=== PATIENT | male | born 1935 | race Caucasian/White ===

== ENCOUNTER 2024-02-03 15:11 | Inpatient (IN) | payer BC ==
[2024-02-03 15:41] LABS: #Basophils Less than 0.03 10x3/uL (0.0-0.2); %Basophils 0.3 % (0.0-1.0); %Eosinophils 0.4 % (0.0-10.0); %Lymphocytes 23.7 % (21.0-51.0); %Monocytes 17.6 % (0.0-10.0); %Neutrophils 57.6 % (42.0-75.0); Hematocrit 39.1 % (42.0-52.0); Hemoglobin 13.1 g/dL (14.0-18.0); Mean Corpuscular HGB CONC 33.5 g/dL (32.0-36.0); Mean Corpuscular Hemoglobin 30.6 pg (27.0-31.0); Mean Corpuscular Volume 91.4 fL (78.0-98.0); Mean Platelet Volume 9.7 fL (7.4-10.4); Platelet Count 190 10x3/uL (130-400); RBC Distribution Width 14.6 % (11.5-14.5); Red Blood Cell (RBC) Count 4.28 mill/uL (4.70-6.10)
[2024-02-03 15:54] LABS: ALT (SGPT) 31 U/L (8-55); AST (SGOT) 108 U/L (5-34); Albumin 3.7 g/dL (3.4-4.8); Alkaline Phosphatase 80 U/L (40-110); Anion Gap 15 mmol/L (10-20); BUN (Urea Nitrogen) 32 mg/dL (8.4-25.7); Bilirubin, Total 0.4 mg/dL (0.2-1.2); Calc. Creatinine Clearance 0 mL/min (70-130); Calcium 9.6 mg/dL (7.8-10.44); Carbon Dioxide 23 mmol/L (23-31); Chloride 106 mmol/L (98-107); Estimated GFR 30; Globulin 4.1 g/dL (2.4-3.5); Glucose 110 mg/dL (83-110); Lipase 24 U/L (8-78); Magnesium 2.2 mg/dL (1.6-2.6); Potassium 4.3 mmol/L (3.5-5.1); Protein, Total 7.8 g/dL (5.8-8.1); Sodium 140 mmol/L (136-145)
[2024-02-03 16:14] LABS: Troponin I 18.032 ng/mL (< 0.028)
[2024-02-03] MEDS ORDERED: Heparin 5,000 UNITS/ML VIAL ONE (17:56)
[2024-02-03] MEDS ORDERED: Nitroglycerin 2% Ointment 1 INCH/1 GM Packet ONE (17:56)
[2024-02-03] MEDS ORDERED: Heparin 25,000 units/D5W 500 ML ONE (17:57)
[2024-02-03] MEDS ORDERED: Aspirin Chewable 81 MG TAB ONE (17:57)
[2024-02-03] MEDS ORDERED: Ondansetron PF 4 MG/2 ML Vial IVP PRN (18:00)
[2024-02-03] MEDS ORDERED: traMADol HCl 50 MG TAB PO PRN (18:00)
[2024-02-03] MEDS ORDERED: Acetaminophen 325 MG TAB PO PRN (18:00)
[2024-02-03] MEDS ORDERED: Nitroglycerin 0.4 MG TAB (25 Tab Bottle) SL PRN (18:08)
[2024-02-03 18:29] LABS: Hematocrit 36.4 % (42.0-52.0); Hemoglobin 12.1 g/dL (14.0-18.0); Platelet Count 178 10x3/uL (130-400)
[2024-02-03] MEDS ORDERED: Morphine 2 MG/ML VIAL SLOW IVP PRN (18:40)
[2024-02-03 18:54] LABS: Troponin I 19.631 ng/mL (< 0.028)
[2024-02-03 19:04] LABS: PTT 158.1 sec (22.9-36.1)
[2024-02-03 20:28] VITALS: BMI 23.5
[2024-02-03] MEDS: Lactated Ringer's 1,000 ML IV SCH (20:55)
[2024-02-03 22:21] LABS: Troponin I 20.188 ng/mL (< 0.028)
[2024-02-04 04:48] LABS: #Basophils 0.03 10x3/uL (0.0-0.2); %Basophils 0.6 % (0.0-1.0); %Eosinophils 2.1 % (0.0-10.0); %Lymphocytes 29.1 % (21.0-51.0); Hematocrit 34.8 % (42.0-52.0); Hemoglobin 11.5 g/dL (14.0-18.0); Mean Corpuscular Hemoglobin 30.8 pg (27.0-31.0); Mean Corpuscular Volume 93.3 fL (78.0-98.0); Mean Platelet Volume 10.1 fL (7.4-10.4); Platelet Count 178 10x3/uL (130-400); RBC Distribution Width 14.7 % (11.5-14.5); Red Blood Cell (RBC) Count 3.73 mill/uL (4.70-6.10)
[2024-02-04 05:08] LABS: Anion Gap 13 mmol/L (10-20); BUN (Urea Nitrogen) 31 mg/dL (8.4-25.7); Calc. Creatinine Clearance 37 mL/min (70-130); Calcium 8.7 mg/dL (7.8-10.44); Carbon Dioxide 24 mmol/L (23-31); Chloride 106 mmol/L (98-107); Estimated GFR 39; Glucose 113 mg/dL (83-110); Potassium 3.9 mmol/L (3.5-5.1); Sodium 139 mmol/L (136-145)
[2024-02-04] MEDS: Aspirin 81 mg Enteric Coated Tablet PO SCH (08:57)
[2024-02-04] MEDS ORDERED: Heparin 10,000 UNITS/ 10 ML VIAL ONE (10:24)
[2024-02-04] MEDS ORDERED: Nitroglycerin 50 MG/250 ML BOT 0 ML ONE (10:24)
[2024-02-04] MEDS ORDERED: fentaNYL 50 mcg/mL 1 mL Vial ONE (10:48)
[2024-02-04] MEDS ORDERED: Midazolam HCl 2 mg/2 ml Vial ONE (10:48)
[2024-02-04] MEDS ORDERED: Acetaminophen/Codeine 30-300mg Tablet PO PRN (11:40)
[2024-02-04] MEDS ORDERED: Sodium Chloride 0.9% 200 ML IV PRN (11:40)
[2024-02-04] MEDS ORDERED: Iopamidol 370 76% 100 ML VIAL ONE (11:46)
[2024-02-04] MEDS: Sodium Chloride 0.9% 500 ML IV SCH (13:00)
[2024-02-04] MEDS: Heparin 10,000 UNITS/ 10 ML VIAL SLOW IVP SCH (15:39)
[2024-02-05 04:22] LABS: #Basophils Less than 0.03 10x3/uL (0.0-0.2); %Eosinophils 1.6 % (0.0-10.0); %Lymphocytes 33.9 % (21.0-51.0); %Monocytes 13.5 % (0.0-10.0); %Neutrophils 50.6 % (42.0-75.0); Hematocrit 33.2 % (42.0-52.0); Hemoglobin 11.1 g/dL (14.0-18.0); Mean Corpuscular HGB CONC 33.4 g/dL (32.0-36.0); Mean Corpuscular Volume 92.7 fL (78.0-98.0); Mean Platelet Volume 10.6 fL (7.4-10.4); Platelet Count 162 10x3/uL (130-400); RBC Distribution Width 14.6 % (11.5-14.5); Red Blood Cell (RBC) Count 3.58 mill/uL (4.70-6.10)
[2024-02-05 04:45] LABS: Anion Gap 13 mmol/L (10-20); BUN (Urea Nitrogen) 22 mg/dL (8.4-25.7); Calc. Creatinine Clearance 44 mL/min (70-130); Carbon Dioxide 24 mmol/L (23-31); Cardiac Risk 5.1 (Less than 4.5); Chloride 105 mmol/L (98-107); Cholesterol 234 mg/dl (< 200 Desired); Estimated GFR 49; Glucose 105 mg/dL (83-110); HDL Cholesterol 46 mg/dL (>60 Neg Risk); LDL Cholesterol, Calculated 168 mg/dL; Potassium 3.9 mmol/L (3.5-5.1); Sodium 138 mmol/L (136-145); Triglycerides 100 mg/dL (Less than 150)
[2024-02-05] MEDS ORDERED: Iopamidol-370 76% 500 ML MDV (1 ML CHARGE) ONE (15:41)
[2024-02-05] MEDS: Rosuvastatin 20 MG TAB PO SCH (21:53)
[2024-02-06] MEDS: Heparin 25,000 units/D5W 500 ML IVPB SCH (04:30)
[2024-02-06 05:09] LABS: Anion Gap 13 mmol/L (10-20); BUN (Urea Nitrogen) 22 mg/dL (8.4-25.7); Calc. Creatinine Clearance 42 mL/min (70-130); Calcium 8.2 mg/dL (7.8-10.44); Carbon Dioxide 23 mmol/L (23-31); Chloride 104 mmol/L (98-107); Estimated GFR 45; Glucose 90 mg/dL (83-110); Potassium 3.8 mmol/L (3.5-5.1); Sodium 136 mmol/L (136-145)
[2024-02-07] MEDS ORDERED: Diazepam 5 MG TAB PO PRN (08:29)
[2024-02-07 10:33] LABS: Hemoglobin A1c 5.6 % (4.0-6.0)
[2024-02-08] MEDS ORDERED: Albumin 5% 500 ML ONE (11:26)
[2024-02-08] MEDS ORDERED: EPINEPHrine 1 MG/ML VIAL ONE (11:26)
[2024-02-08] MEDS ORDERED: Dexamethasone 4 mg/ml Vial ONE (11:26)
[2024-02-08] MEDS ORDERED: Bupivacaine PF 0.5% 30 ML VIAL ONE (11:26)
[2024-02-08] MEDS ORDERED: CEFAZOLIN 2 GM in Sodium Chloride 0.9% 100 ML IVPB SCH (12:00)
[2024-02-08] MEDS ORDERED: Fentanyl 250 MCG/5 ML VIAL ONE (12:16)
[2024-02-08] MEDS ORDERED: PROPOFOL 20 ML ONE (12:16)
[2024-02-08] MEDS ORDERED: Protamine Sulfate 250 MG/25 ML VIAL ONE (12:30)
[2024-02-08] MEDS ORDERED: Heparin 5,000 UNITS/ML VIAL ONE (12:30)
[2024-02-08] MEDS ORDERED: Aminocaproic Acid 5 GM/20 ML VIAL ONE ×2 (12:30→14:40)
[2024-02-08] MEDS ORDERED: Lidocaine 2% PF 100 mg/5 ml Syringe ONE (12:30)
[2024-02-08] MEDS ORDERED: Heparin 30,000 units/30 ml VIAL ONE (12:30)
[2024-02-08] MEDS ORDERED: Cardioplegic Soln 1,000 ML BAG ONE (12:30)
[2024-02-08] MEDS ORDERED: Potassium Chloride 60 mEq (30 mL) VIAL ONE (12:30)
[2024-02-08] MEDS ORDERED: Magnesium 5 GM/10 ML VIAL ONE (12:30)
[2024-02-08] MEDS ORDERED: Mannitol 12.5 GM/50 ML ONE (12:30)
[2024-02-08] MEDS ORDERED: Sodium Bicarb 50 mEq/50 ML VIAL ONE (12:30)
[2024-02-08] MEDS ORDERED: Calcium Chloride 1 GM/10 ML Abboject SYRINGE ONE (12:30)
[2024-02-08] MEDS ORDERED: Papaverine 60 MG/2 ML VIAL ONE (12:30)
[2024-02-08] MEDS ORDERED: Thrombin 5000 UNITS/5 ML VIAL ONE (12:30)
[2024-02-08] MEDS ORDERED: Vancomycin 1 GM VIAL ONE (12:30)
[2024-02-08] MEDS ORDERED: ePHEDrine Sulfate 50 MG/10 ML VIAL ONE (12:45)
[2024-02-08] MEDS ORDERED: Etomidate 40 MG (20 mL) VIAL ONE (14:40)
[2024-02-08] MEDS ORDERED: Rocuronium Bromide 10 MG/ML (10ML VIAL) ONE (14:40)
[2024-02-08] MEDS ORDERED: Norepinephrine 4 MG/4 ML VIAL ONE (14:40)
[2024-02-08] MEDS ORDERED: Lidocaine 1% PF 5 ML VIAL ONE (14:40)
[2024-02-08] MEDS ORDERED: PHENYLEPHRINE-NS 100 MCG/ML 10 ML SYRINGE ONE (14:40)
[2024-02-08] MEDS ORDERED: traMADol HCl 50 MG TAB PO PRN (15:23)
[2024-02-08] MEDS ORDERED: Bisacodyl 5 MG TAB PO PRN (15:23)
[2024-02-08] MEDS ORDERED: Bisacodyl 10 MG SUPP PR PRN (15:23)
[2024-02-08] MEDS ORDERED: fentaNYL 50 mcg/mL 1 mL Vial SLOW IVP PRN (15:23)
[2024-02-08] MEDS ORDERED: NOREPINEPHRINE 8 MG/250 ML-D5W 250 ML IVPB PRN (15:23)
[2024-02-08] MEDS ORDERED: hydrALAZINE 20 MG/ML VIAL SLOW IVP PRN (15:23)
[2024-02-08] MEDS ORDERED: Milrinone 20 MG in Sodium Chloride 0.9% 100 ML IVPB SCH (15:23)
[2024-02-08] MEDS ORDERED: Potassium Chloride 20 MEQ (100 mL) BAG IVPB PRN (15:23)
[2024-02-08] MEDS ORDERED: Ipratropium/Albuterol 3 ML NEB NEB PRN (15:23)
[2024-02-08] MEDS ORDERED: Acetaminophen 325 MG TAB PO PRN (15:23)
[2024-02-08] MEDS ORDERED: Morphine 2 MG/ML VIAL SLOW IVP PRN (15:23)
[2024-02-08] MEDS ORDERED: Hetastarch 6% 500 ML 500 ML IVPB PRN (15:23)
[2024-02-08] MEDS ORDERED: Albumin 5% 12.5 GM (250 mL) BOT IVPB PRN (15:23)
[2024-02-08] MEDS ORDERED: Mag-Al 1200 mg/1200 mg/30 ML UDCUP PO PRN (15:23)
[2024-02-08] MEDS ORDERED: Guaifenesin DM 100-10/5 ML UDCUP PO PRN (15:23)
[2024-02-08 15:39] LABS: Actual Bicarbonate (HCO3a) 17.8 mEq/L (22-28); Base Excess (BEa) -8.1 mEq/L (-2.0 to +3.0); CO2 Tension 38.1 mmHg (35.0-45.0); Calcium, Ionized (arterial) 1.15 mmol/L (1.12-1.30); Carboxyhemoglobin (COHb) 0.6 gm% (0.0-3.0); Hematocrit-ABG 34 % (42.0-52.0); Hemoglobin (Hb) 11.6 g/dL (14.0-18.0); O2 Tension (PaO2), arterial 108.3 mmHg (> 60.0); Potassium - ABG Lab 3.96 mmol/L (3.70-5.30); pH, Arterial 7.288 (7.35-7.45)
[2024-02-08 15:40] LABS: ALV-art Gradient 200.575 mmHg (0-20); Puncture Site Arterial Line
[2024-02-08] MEDS ORDERED: Milrinone Lactate/D5W 20 MG in Premix 1 BAG IV SCH (16:00)
[2024-02-08] MEDS: Insulin Regular, Human 100 UNIT/ML 10 ML VIAL SC PRN (16:01)
[2024-02-08 16:03] LABS: #Basophils Less than 0.03 10x3/uL (0.0-0.2); %Basophils 0.1 % (0.0-1.0); %Eosinophils 3.3 % (0.0-10.0); %Lymphocytes 25.7 % (21.0-51.0); %Monocytes 4.5 % (0.0-10.0); %Neutrophils 64.5 % (42.0-75.0); Hematocrit 32.5 % (42.0-52.0); Hemoglobin 10.9 g/dL (14.0-18.0); Mean Corpuscular HGB CONC 33.5 g/dL (32.0-36.0); Mean Corpuscular Hemoglobin 31.3 pg (27.0-31.0); Mean Corpuscular Volume 93.4 fL (78.0-98.0); Mean Platelet Volume 10.3 fL (7.4-10.4); Platelet Count 121 10x3/uL (130-400); RBC Distribution Width 14.1 % (11.5-14.5); Red Blood Cell (RBC) Count 3.48 mill/uL (4.70-6.10)
[2024-02-08 16:15] LABS: Anion Gap 13 mmol/L (10-20); BUN (Urea Nitrogen) 17 mg/dL (8.4-25.7); Calc. Creatinine Clearance 52 mL/min (70-130); Calcium 7.7 mg/dL (7.8-10.44); Carbon Dioxide 20 mmol/L (23-31); Chloride 112 mmol/L (98-107); Estimated GFR 61; Glucose 149 mg/dL (83-110); INR-International Normal Ratio 1.2; Prothrombin Time 15.2 sec (12.0-14.7); Sodium 141 mmol/L (136-145)
[2024-02-08 16:16] LABS: PTT 31.3 sec (22.9-36.1)
[2024-02-08] MEDS: D5 1/2 NS w/20 mEq KCL 1,000 ML IV SCH (16:20)
[2024-02-08] MEDS: Magnesium 2 GM/50 ML(in water) 2 GM in Premix 1 BAG IVPB SCH (16:21)
[2024-02-08] MEDS: Nitroglycerin 50 MG/250 ML BOT 250 ML IVPB PRN (16:21)
[2024-02-08] MEDS: CEFAZOLIN 2 GM in Sodium Chloride 0.9% 100 ML IVPB SCH (16:21)
[2024-02-08] MEDS: Famotidine/PF 20 mg/2ml Vial SLOW IVP SCH (20:02)
[2024-02-08] MEDS: Atorvastatin Calcium 40 MG TAB PO SCH (21:24)
[2024-02-08 21:25] LABS: Hematocrit 35.3 % (42.0-52.0); Hemoglobin 11.9 g/dL (14.0-18.0)
[2024-02-08 21:38] LABS: Potassium 4.4 mmol/L (3.5-5.1)
[2024-02-08 22:28] LABS: Actual Bicarbonate (HCO3a) 17.7 mEq/L (22-28); Base Excess (BEa) -5.1 mEq/L (-2.0 to +3.0); CO2 Tension 26.6 mmHg (35.0-45.0); Calcium, Ionized (arterial) 1.08 mmol/L (1.12-1.30); Carboxyhemoglobin (COHb) 0.2 gm% (0.0-3.0); Hematocrit-ABG 36 % (42.0-52.0); Hemoglobin (Hb) 12.4 g/dL (14.0-18.0); O2 Tension (PaO2), arterial 196.2 mmHg (> 60.0); Potassium - ABG Lab 4.28 mmol/L (3.70-5.30)
[2024-02-08 22:49] LABS: Puncture Site LINE
[2024-02-08] MEDS: Sodium Bicarb 50 MEQ/50 ML Abboject 8.4% SYRINGE IVP SCH (22:54)
[2024-02-09 05:03] LABS: #Basophils Less than 0.03 10x3/uL (0.0-0.2); #Eosinphils Less than 0.03 10x3/uL (0.0-0.7); %Basophils 0.1 % (0.0-1.0); %Lymphocytes 8.5 % (21.0-51.0); %Monocytes 7.2 % (0.0-10.0); %Neutrophils 83.7 % (42.0-75.0); Hematocrit 32.4 % (42.0-52.0); Hemoglobin 11.2 g/dL (14.0-18.0); Mean Corpuscular HGB CONC 34.6 g/dL (32.0-36.0); Mean Corpuscular Hemoglobin 30.6 pg (27.0-31.0); Mean Corpuscular Volume 88.5 fL (78.0-98.0); Mean Platelet Volume 11.1 fL (7.4-10.4); Platelet Count 162 10x3/uL (130-400); Red Blood Cell (RBC) Count 3.66 mill/uL (4.70-6.10)
[2024-02-09 05:21] LABS: Anion Gap 13 mmol/L (10-20); BUN (Urea Nitrogen) 16 mg/dL (8.4-25.7); Calc. Creatinine Clearance 48 mL/min (70-130); Calcium 7.7 mg/dL (7.8-10.44); Carbon Dioxide 21 mmol/L (23-31); Chloride 111 mmol/L (98-107); Estimated GFR 56; Glucose 121 mg/dL (83-110); Potassium 4.2 mmol/L (3.5-5.1); Sodium 141 mmol/L (136-145)
[2024-02-09] MEDS: traMADol HCl 50 MG TAB PO PRN (05:26)
[2024-02-09] MEDS: Ondansetron PF 4 MG/2 ML Vial IVP PRN (05:26)
[2024-02-09] MEDS: fentaNYL 50 mcg/mL 1 mL Vial SLOW IVP PRN (05:26)
[2024-02-09] MEDS: Albumin 5% 12.5 GM (250 mL) BOT IVPB PRN (07:16)
[2024-02-09] MEDS: Aspirin 325 MG TAB PO SCH (08:11)
[2024-02-09] MEDS: Magnesium 2 GM/50 ML(in water) 2 GM in Premix 1 BAG IVPB SCH (08:11)
[2024-02-09] MEDS: Pantoprazole DR 40 MG TAB PO SCH (08:12)
[2024-02-09 13:39] LABS: Actual Bicarbonate (HCO3a) 19.2 mEq/L (22-28); Analyzer IN Cardio OR; Base Excess (BEa) -4.2 mEq/L (-2.0 to +3.0); CO2 Tension 30.2 mmHg (35.0-45.0); Carboxyhemoglobin (COHb) 0.3 gm% (0.0-3.0); Hematocrit-ABG 36 % (42.0-52.0); Hemoglobin (Hb) 12.4 g/dL (14.0-18.0); O2 Tension (PaO2), arterial 320.3 mmHg (> 60.0); Potassium - ABG Lab 3.92 mmol/L (3.70-5.30); pH, Arterial 7.421 (7.35-7.45)
[2024-02-09 16:02] LABS: Puncture Site Arterial Line
[2024-02-09 16:05] LABS: Actual Bicarbonate (HCO3a) 19.6 mEq/L (22-28); Analyzer IN Cardio OR; Base Excess (BEa) -6.1 mEq/L (-2.0 to +3.0); CO2 Tension 39.7 mmHg (35.0-45.0); Calcium, Ionized (arterial) 1.07 mmol/L (1.12-1.30); Hematocrit-ABG 35 % (42.0-52.0); Hemoglobin (Hb) 11.8 g/dL (14.0-18.0); O2 Tension (PaO2), arterial 171.5 mmHg (> 60.0); Potassium - ABG Lab 4.98 mmol/L (3.70-5.30); pH, Arterial 7.312 (7.35-7.45)
[2024-02-09 16:06] LABS: Actual Bicarbonate (HCO3a) 19.5 mEq/L (22-28); Analyzer IN Cardio OR; CO2 Tension 38.8 mmHg (35.0-45.0); Calcium, Ionized (arterial) 1.11 mmol/L (1.12-1.30); Carboxyhemoglobin (COHb) 0.3 gm% (0.0-3.0); Hematocrit-ABG 33 % (42.0-52.0); Hemoglobin (Hb) 11.3 g/dL (14.0-18.0); O2 Tension (PaO2), arterial 98.8 mmHg (> 60.0); Potassium - ABG Lab 4.42 mmol/L (3.70-5.30)
[2024-02-09 16:06] LABS: Actual Bicarbonate (HCO3a) 22.2 mEq/L (22-28); Analyzer IN Cardio OR; Base Excess (BEa) -2.9 mEq/L (-2.0 to +3.0); CO2 Tension 39.3 mmHg (35.0-45.0); Calcium, Ionized (arterial) 0.99 mmol/L (1.12-1.30); Carboxyhemoglobin (COHb) 0.4 gm% (0.0-3.0); Hematocrit-ABG 26 % (42.0-52.0); Hemoglobin (Hb) 8.8 g/dL (14.0-18.0); O2 Tension (PaO2), arterial 369.2 mmHg (> 60.0); pH, Arterial 7.369 (7.35-7.45)
[2024-02-09 16:06] LABS: Actual Bicarbonate (HCO3a) 22.3 mEq/L (22-28); Analyzer IN Cardio OR; Base Excess (BEa) -2.4 mEq/L (-2.0 to +3.0); CO2 Tension 38.1 mmHg (35.0-45.0); Calcium, Ionized (arterial) 0.98 mmol/L (1.12-1.30); Hematocrit-ABG 27 % (42.0-52.0); Hemoglobin (Hb) 9.2 g/dL (14.0-18.0); O2 Tension (PaO2), arterial 398.3 mmHg (> 60.0); Potassium - ABG Lab 5.62 mmol/L (3.70-5.30); pH, Arterial 7.386 (7.35-7.45)
[2024-02-09 16:07] LABS: Puncture Site Arterial Line
[2024-02-09 16:07] LABS: Puncture Site Arterial Line
[2024-02-09 16:07] LABS: Puncture Site Arterial Line
[2024-02-09 16:08] LABS: Puncture Site Arterial Line
[2024-02-10 09:57] VITALS: BMI 23.2
[2024-02-11] MEDS ORDERED: Nitroglycerin 0.4 MG TAB (25 Tab Bottle) SL PRN (18:44)
[2024-02-11] MEDS ORDERED: Guaifenesin DM 100-10/5 ML UDCUP PO PRN (18:44)
[2024-02-11] MEDS ORDERED: Mineral Oil ENEMA PR PRN (18:44)
[2024-02-11] MEDS ORDERED: Milk Of Magnesia 30 ML UDCUP PO PRN (18:44)
[2024-02-11] MEDS ORDERED: diphenhydrAMINE 25 MG CAP PO PRN (18:44)
[2024-02-11] MEDS ORDERED: Artificial Tear Ophth Sol 15 ML BOT EA EYE PRN (18:44)
[2024-02-12] MEDS: Carvedilol 3.125 MG TAB PO SCH (17:22)
[2024-02-13 07:28] LABS: Anion Gap 14 mmol/L (10-20); BUN (Urea Nitrogen) 19 mg/dL (8.4-25.7); Calc. Creatinine Clearance 50 mL/min (70-130); Calcium 8.2 mg/dL (7.8-10.44); Carbon Dioxide 22 mmol/L (23-31); Chloride 105 mmol/L (98-107); Estimated GFR 57; Glucose 106 mg/dL (83-110); Magnesium 2.1 mg/dL (1.6-2.6); Potassium 3.9 mmol/L (3.5-5.1); Sodium 137 mmol/L (136-145)
[2024-02-13 11:33] VITALS: BP 147/66; TEMP 97.6
== END 2024-02-13 16:45 | disposition home or self-care (01) | DRG 234 ==
LOC: ERS 15:11 → 2NO 17:47 → CCU 02-08 12:13 → 2NO 02-11 17:12
PROVIDERS: ADMIT Internal Medicine; ATTEND Family Medicine
PROC: 4A023N7 Measurement of Cardiac Sampling and Pressure, Left Heart, Percutaneous Approach (ICD-10-PCS; 2024-02-04)
PROC: B2151ZZ Fluoroscopy of Left Heart using Low Osmolar Contrast (ICD-10-PCS; 2024-02-04)
PROC: B2111ZZ Fluoroscopy of Multiple Coronary Arteries using Low Osmolar Contrast (ICD-10-PCS; 2024-02-04)
PROC: 02100Z9 Bypass Coronary Artery, One Artery from Left Internal Mammary, Open Approach (ICD-10-PCS; principal; 2024-02-08)
PROC: 021109W Bypass Coronary Artery, Two Arteries from Aorta with Autologous Venous Tissue, Open Approach (ICD-10-PCS; 2024-02-08)
PROC: 06BQ4ZZ Excision of Left Saphenous Vein, Percutaneous Endoscopic Approach (ICD-10-PCS; 2024-02-08)
PROC: 5A1221Z Performance of Cardiac Output, Continuous (ICD-10-PCS; 2024-02-08)
PROC: 02L70CK Occlusion of Left Atrial Appendage with Extraluminal Device, Open Approach (ICD-10-PCS; 2024-02-08)
PROC: 4A133R1 Monitoring of Arterial Saturation, Peripheral, Percutaneous Approach (ICD-10-PCS; 2024-02-08)
PROC: 3E033XZ Introduction of Vasopressor into Peripheral Vein, Percutaneous Approach (ICD-10-PCS; 2024-02-08)
PROC: 30233J1 Transfusion of Nonautologous Serum Albumin into Peripheral Vein, Percutaneous Approach (ICD-10-PCS; 2024-02-08)
DX: I21.4 Non-ST elevation (NSTEMI) myocardial infarction (principal); I50.22 Chronic systolic (congestive) heart failure; I97.190 Other postprocedural cardiac functional disturbances following cardiac surgery; N17.9 Acute kidney failure, unspecified; N18.4 Chronic kidney disease, stage 4 (severe); I25.10 Atherosclerotic heart disease of native coronary artery without angina pectoris; E78.5 Hyperlipidemia, unspecified; R00.1 Bradycardia, unspecified; Z79.82 Long term (current) use of aspirin; Z79.899 Other long term (current) drug therapy; Z98.890 Other specified postprocedural states; Z85.038 Personal history of other malignant neoplasm of large intestine; Z79.01 Long term (current) use of anticoagulants; Z86.73 Personal history of transient ischemic attack (TIA), and cerebral infarction without residual deficits; I35.0 Nonrheumatic aortic (valve) stenosis; I25.5 Ischemic cardiomyopathy
CPT/HCPCS: 36415; 36416; 36430; 71045; 71275; 80048; 80053; 80061; 82805; 83036; 83690; 83735; 83880; 84484; 85025; 85347; 85610; 85730; 86850; 86900; 86901; 93005; 93010; 93306; 93458; 93798; 94002; 96365; 96376; 97139; A4311; A4648; C1751; C1769; C1887; J0171; J0665; J1100; J1642; J1644; J1815; J2001; J2150; J2250; J2260; J2405; J2440; J2704; J2720; J3010; J3370; J3475; J3480; J3490; J7030; J7120; P9045; Q9967; S0017

== ENCOUNTER 2024-03-30 08:43 | Outpatient (CLI) | payer BC ==
[2024-03-30] MEDS ORDERED: Iopamidol 370 76% 100 ML VIAL ONE (09:11)
== END 2024-03-30 08:44 | disposition home or self-care (01) ==
LOC: CT 08:43
PROVIDERS: ATTEND Internal Medicine Cardiovascular Disease
DX: I70.203 Unspecified atherosclerosis of native arteries of extremities, bilateral legs (principal); N28.1 Cyst of kidney, acquired; I77.89 Other specified disorders of arteries and arterioles; Z98.890 Other specified postprocedural states; Z90.5 Acquired absence of kidney
CPT/HCPCS: 36415; 75635; 82565; Q9967